=== PATIENT | male | born 1955 | race Caucasian/White ===

== ENCOUNTER 2024-04-12 08:11 | Emergency (ER) | payer MEDICARE, SELFPAY ==
[2024-04-12 08:16] VITALS: BP 137/73; PULSE 70; RESP 20; TEMP 36.4; O2SAT 99; BMI 23.6
--- NOTE | 2024-04-12 09:15 | ED_ITS ---
HPI - General Adult General Chief complaint: Extremity Problem Stated complaint: Foot injury Time Seen by Provider: 04/12/24 09:05 Source: patient Mode of arrival: ambulatory Limitations: no limitations History of Present Illness ED Provider: Cathryn [facility] narrative: Patient is a 69-year-old male presenting to the emergency department with complaint of pain to left achilles area. States that he was walking down the stairs and thought he had one more step to go but was actually stepping off the last step. Put more weight onto left foot than intended. Recently experienced several months of Achilles tendinitis which had improved and was not bothering him for the past 3 weeks. Now complaining of pain in the area of his Achilles tendon again. Applied ice prior to arrival. Denies any weakness, numbness, tingling to foot. Able to ambulate but with pain. MD complaint: ankle pain Onset (ago): hour(s) Quality: aching Pain Consistency: constant Relieving factors: rest Exacerbating factors: movement Treatments prior to arrival: cold therapy Related Data Allergies Allergy/AdvReac Type Severity Reaction Status Date / Time penicillin G Allergy Unknown Rash Verified 04/12/24 08:18 bee stings Allergy Unknown hives Uncoded 04/12/24 08:18 surgical tape Allergy Unknown Rash Uncoded 04/12/24 08:18 Review of Systems Review of Systems: As per HPI Yes all other systems are reviewed and are negative Constitutional: Constitutional: Reports as per HPI [facility] Social History Social History Advance Directives: No Advance Directives Information Provided: Yes Physical Exam ED Vital Signs: Vital Signs - 24 hr 04/12/24 08:16 Temperature 97.5 F Pulse Rate 70 Respiratory Rate 20 Blood Pressure 137/73 Pulse Oximetry 99 Oxygen Delivery Method Room Air BMI result Body Mass Index 23.6 Vital signs have been reviewed and appear to be correct. Blood pressure normal. Heart rate normal. Respiratory rate normal. Temperature normal. Oxygen saturation normal. Const General: cooperative, healthy appearing and no acute distress Orientation/consciousness: oriented to person, oriented to place, oriented to time and patient oriented x3 Limitations: no limitations HENMT Head: Yes normocephalic and Yes atraumatic Ears: external ears normal General nose exam: Normal external nose present Face and sinus: Yes face symmetric Mouth: oropharynx normal and moist mucous membranes Throat: Yes uvula midline Eyes Pupils: Equal, round and reactive pupils present Neck Neck: Yes normal visual inspection and Yes supple Resp Effort & Inspection: normal respiratory effort and able to speak in complete sentences Auscultation: clear to auscultation bilaterally Cardio Rate: regular rate Rhythm: regular rhythm Heart sounds: S1 normal heart sound present and S2 normal heart sound present GI Palpation (GI): Soft to palpation and nontender Auscultation: normoactive bowel sounds General: Yes no CVA tenderness Back/Spine/Pelvis Back: no CVA tenderness Skin General skin exam: elasticity normal and turgor normal Neuro General: oriented to person, oriented to place, oriented to time, patient oriented x3, moves all extremities, no focal motor deficits and CN's II-XI inta ct bilaterally Cranial nerves: Yes Equal, round and reactive pupils present Cognition (Neuro): normal cognition Extrem General: Yes full ROM, Yes no pedal edema and Yes no calf tenderness Left lower extremity: ankle Details: tenderness Location: of the achilles tendon, swelling (achilles tendon), normal ROM and achilles tendon exam abnormal Details: tenderness to palpation; no step-off noted and Angel Test normal; no warmth and no ecchymosis and foot Details: vascular exam Details: dorsalis pedis pulse present, posterior tibial pulse present and normal capillary refill Psych Mental Status: mental status grossly normal Affect: normal affect Thought process: Normal thought process present Medical Decision Making Medical Decision Making [facility] Narrative: Patient is a 69-year-old male presenting to the emergency department with complaint of pain to left achilles area. On exam patient is awake, A+Ox3, VS WNL, afebrile, normal neurological exam without focal deficits, physical exam findings as above. Given reported symptoms and physical exam findings, initial differential includes left ankle strain, sprain, achilles tendonitis, achilles tendon tear/rupture. Negative Angel test, do not suspect rupture. Possible partial tear versus tendonitis. Unlikely fracture as no bony tenderness. Patient placed in walking boot and will refer to orthopedics. Patient also states he does not currently have a PCP, will provide patient with resources for establishing care with a primary care provider. Return precautions discussed at bedside. Advised patient to ice, elevate, NSAIDs. Patient verbalized understanding of and agreement with plan. Differential Diagnosis Differential Diagnoses: The differential diagnosis associated with the presentation includes As per [facility] External Record Review External record reviewed: Inpatient record, Office record and Outpatient record Discharge Plan Discharge Clinical Impression: Achilles tendinitis Qualifiers: Laterality: left Qualified Code(s): M76.62 - Achilles tendinitis, left leg Patient Disposition: Home, Self-Care Instructions: Achilles Tendinitis (ED), Walking Boot (ED) Additional Instructions: You have been evaluated in the emergency department today for ankle pain which is due to either inflammation or a partial tear of your achilles. We recommend that you follow-up with orthopedics for further evaluation and management. We have provided a walking boot for you to use while your achilles heals. Wear this any time you are weight bearing or walking until you follow up with orthopedics. Please rest, ice, and elevate your ankle, and resume normal activities as tolerated. We recommend you take 600mg ibuprofen every 6 hours or 650mg Tylenol every 6 hours as needed for pain. If needed you can alternate these medications as they take 1 medication every 3 hours. For instance at noon take ibuprofen, then at 3:00 p.m. take Tylenol, then at 6:00 p.m. take ibuprofen. Please schedule an appointment for follow-up with your primary care provider this week. Return to the emergency department if you experience worsening pain, numbness, tingling, change of color in your foot, or any other concerning symptoms. Referrals: [facility] [Provider Group] [facility], [place] [Provider Group] [facility],[place] [Provider Group] [facility] [Provider Group] - 3 days (achilles tendonitis vs tear) Print Language: Faroese
== END 2024-04-12 10:30 | disposition home or self-care (01) ==
PROVIDERS: Emergency Provider Emergency Medicine
DX: M76.62 Achilles tendinitis, left leg (principal); M79.672 Pain in left foot
CPT/HCPCS: 99283

== ENCOUNTER 2024-05-12 10:43 | Outpatient (REF) | payer MEDICARE, SELFPAY ==
--- NOTE | ~2024-05-12 | XR_ITS ---
EXAMINATION: XR ANKLE 3 OR MORE VIEWS LEFT HISTORY: M25.579 - Pain in unspecified ankle and joints of unspecified foot COMPARISON: There are no prior studies available for comparison. FINDINGS: Three views of the left ankle are submitted. Osseous mineralization is normal. There is no fracture or dislocation. The joint spaces are preserved. There are soft tissue calcifications at the plantar aspect of the foot. XR/XR ankle LT min 3V IMPRESSION: Soft tissue calcifications at the plantar aspect of the foot. Otherwise unremarkable examination of the left ankle. Electronically signed by: Nik Nickerson MD 05/17/2024 10:55 AM PAT[facility]
== END 2024-05-12 10:44 | disposition home or self-care (01) ==
LOC: HO.HOSX 10:43
PROVIDERS: Visit Provider Physician Assistant
DX: M25.572 Pain in left ankle and joints of left foot (principal); S86.112A Strain of other muscle(s) and tendon(s) of posterior muscle group at lower leg level, left leg, initial encounter
CPT/HCPCS: 73610; 99202

== ENCOUNTER 2024-05-12 12:44 | Outpatient (AMB) | payer MEDICARE, SELFPAY ==
--- NOTE | 2024-05-12 13:01 | MHC.OFFVIS ---
Intake Visit Reasons: New Pt - Left Achilles tendon pain Intake Note: Channing is a 69 year old male who presents today with a shot walking boot with crutches for a evaluation of his left Achilles pain, DOI 04/19/24. Patient reports he was walking down the stairs holding his dog and thought he had one more step to go but was actually stepping off the last step. He mentions that he put more weight onto his left foot than intended. Patient mentions that his pain is mainly in his heel. Then he experienced pain of the Achilles tendon which had improved and was not bothering him for the past 3 weeks. Allergies penicillin G Allergy (Unknown, Verified 05/12/24 13:08) Rash bee stings Allergy (Unknown, Uncoded 04/12/24 08:18) hives surgical tape Allergy (Unknown, Uncoded 04/12/24 08:18) Rash HPI HPI New Pt - Left Achilles tendon pain: Details: Mr. Cruz is a 69-year-old male who presents to the office today for evaluation of left calf pain. Reports that on 04/12/2024 he was going down the stairs while taking his dog out. He was holding his dog in his hands and he thought he had reached the last step but unfortunately had 1 more to go. This resulted in a hyper dorsiflexion injury. He felt immediate pain in his calf with some radiation down into the Achilles. He presented to the emergency department on 04/12/2024 for evaluation. Their assessment was Achilles tendinitis and the patient was placed into a tall walking boot instructed to weightbear as tolerated with crutches. Over the past few weeks the patient reports that his pain has been gradually improving. 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 When he is at home he does frequently come out of the boot. He reports that he still has some lingering calf soreness. He reports more pain with going up and down the stairs and pushing off. [facility] Social History (Updated 05/12/24 @ 13:09 by Cesar Valle) Alcohol intake: never Patient Tobacco Use Status: Never used Tobacco Current occupational status: employed Current occupation: cell lead(Doctor) Review of Systems Const All systems reviewed & are unremarkable except as noted in HPI and below Physical Exam Const General: cooperative, healthy appearing and no acute distress Resp Effort & Inspection: normal respiratory effort and able to speak in complete sentences Cardio Rate: regular rate Peripheral pulses: Peripheral pulses 2+ throughout Skin Lesions: no lesions Rashes: no rashes Extrem Other: Left calf normal to inspection no ecchymosis erythema or edema. Slight tenderness with calf squeeze. Achilles tendon is palpable. Able to dorsiflex and plantar flex. Negative Angel's test. NVI. Assessment & Plan Assessment & Plan (1) Gastrocnemius strain, left: Code(s): S86.112A - Strain of other muscle(s) and tendon(s) of posterior muscle group at lower leg level, left leg, initial encounter Category: Medical Plan Mr. Cruz is a 69-year-old male who presents to the office today for evaluation of left calf pain. Reports that on 04/12/2024 he was going down the stairs while taking his dog out. He was holding his dog in his hands and he thought he had reached the last step but unfortunately had 1 more to go. This resulted in a hyper dorsiflexion injury. He felt immediate pain in his calf with some radiation down into the Achilles. He presented to the emergency department on 04/12/2024 for evaluation. Their assessment was Achilles tendinitis and the patient was placed into a tall walking boot instructed to weightbear as tolerated with crutches. Over the past few weeks the patient reports that his pain has been gradually improving. 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 When he is at home he does frequently come out of the boot. He reports that he still has some lingering calf soreness. He reports more pain with going up and down the stairs and pushing off. Patient may discontinue the boot at this time. I did advise that he should remain in the boot for protection while at work for the next 2 weeks and then he can transition to a supportive shoe. Advised on gentle stretching. NSAIDs as needed. Ice and heat as needed. Patient is overall doing very well and therefore physical therapy has been deferred at this time. I did provide him with my business card if he continues to have any pain, discomfort or concerns. He will follow up p.r.n., sooner if needed. X-rays obtained in the office today of the left ankle were reviewed by me and are negative for any acute fracture or dislocation. Of note, the patient does have calcifications along the plantar fascia of the left foot. Orders: Orders XR ankle LT min 3V Today M25.579 - Pain in unspecified ankle and joints of unspecified foot Coding Level of Care Code New Pt Level 3 (36044) Diagnoses Gastrocnemius strain, left S86.112A
== END 2024-05-12 13:29 | disposition home or self-care (01) ==
PROVIDERS: Visit Provider Physician Assistant
DX: S86.112A Strain of other muscle(s) and tendon(s) of posterior muscle group at lower leg level, left leg, initial encounter (principal)
CPT/HCPCS: 99203